=== PATIENT | female | born 1970 | race Caucasian/White ===

== ENCOUNTER → 2016-06-11 | Emergency (ER) | payer SELFPAY ==
[~2016-06-11] VITALS: Ht 157.5 cm; Wt 96.2 kg
[~2016-06-11] MED LIST: CYCLOBENZAPRINE10 MG ORAL; IBUPROFEN600 MG ORAL; Ketorolac 30mg Inj IM ONE
[2016-06-12 00:17] VITALS: BP 159/108
[2016-06-12 01:28] VITALS: BP 159/108
--- NOTE | 2016-06-12 03:40 | Emergency Room Report ---
History of Present Illness General Chief Complaint: Chest Pain Source: Patient Present Illness HPI 45-year-old female presents to ED complaining of back pain. States pain started one day ago. Started after she had a "violent sneeze". HEENT is localized left upper back underneath the left shoulder blade. Pain is sharp. 10 of 10. Burning. Nonradiating. Worse with twisting and bending. Denies chest pain or shortness of breath. Denies fevers or chills. No other aggravating relieving factors. Denies any other associated symptoms Allergies: Coded Allergies: No Known Allergies (Unverified , 06/11/16) Patient History Past Medical History: HTN Past Surgical History: none Pertinent Family History: none Social History: Denies: alcohol use, drug use, smoking Last Menstrual Period: 05/15/16 Now: No : 2 Immunizations: UTD Reviewed Nursing Documentation: PMH: Agreed, PSxH: Agreed Nursing Documentation-PMH Hx Hypertension: Yes Review of Systems All Other Systems: negative except mentioned in HPI Physical Exam Vital Signs Date Time Temp Pulse Resp B/P Pulse Ox O2 Delivery O2 Flow Rate FiO2 06/11/16 23:37 98.4 87 18 152/86 100 Room Air Sp02 EP Interpretation: reviewed, normal General Appearance: no apparent distress, alert, GCS 15, non-toxic, obese Head: normocephalic Eyes: bilateral eye PERRL, bilateral eye normal inspection ENT: normal ENT inspection Neck: normal inspection Respiratory: chest non-tender, lungs clear, normal breath sounds, speaking full sentences Cardiovascular #1: regular rate, rhythm, no edema Gastrointestinal: normal inspection Rectal: deferred Genitourinary: no CVA tenderness Musculoskeletal: tender - paraspinal thoracic pain Neurologic: alert, oriented x3, responsive, motor strength/tone normal, sensory intact, speech normal Psychiatric: normal inspection Skin: normal inspection Lymphatic: normal inspection Medical Decision Making Diagnostic Impression: Primary Impression: Back strain Qualified Codes: S39.012A - Strain of muscle, fascia and tendon of lower back , initial encounter ER Course Hospital Course 45-year-old female presents ED complaining of upper back pain. No evidence of trauma Differential diagnoses include: pyelonephritis, kidney stone, muscle strain,rib fx Clinical course Patient placed on stretcher. After initial history and physical I ordered toradol and valium for pain. Upon reassessment patient states pain has improved. Diagnosis - back pain Stable and discharged to home with prescription for Motrin, Flexeril. Followup with PMD. Return to ED if symptoms recur or worsen Last Vital Signs Date Time Temp Pulse Resp B/P Pulse Ox O2 Delivery O2 Flow Rate FiO2 06/12/16 01:28 98.4 89 18 159/108 96 Room Air Status: improved Disposition: HOME, SELF-CARE Condition: Stable Scripts Cyclobenzaprine Hcl* (FLEXERIL*) 10 Mg Tablet 10 MG ORAL TID Y for Muscle Spasm, #20 TAB Prov: ANNABELLA DENNISON M.D. 06/12/16 Ibuprofen* (MOTRIN*) 600 Mg Tablet 600 MG ORAL Q8H Y for For Pain, #30 TAB 0 Refills Prov: ANNABELLA DENNISON M.D. 06/12/16 Referrals: NOT CHOSEN DOMINICK/,REFERRING (PCP) Patient Instructions: Thoracic Strain ANNABELLA DENNISON M.D. Jun 12, 2016 03:40
== END | disposition home or self-care (01) ==
LOC: EMR 23:55
DX: S39.012A Strain of muscle, fascia and tendon of lower back, initial encounter (principal); X58.XXXA Exposure to other specified factors, initial encounter; Y93.9 Activity, unspecified; Y92.9 Unspecified place or not applicable; I10 Essential (primary) hypertension
CPT/HCPCS: 96372; 99284